=== PATIENT | female | born 1990 | race Caucasian/White ===

== ENCOUNTER 2025-05-26 07:46 | Emergency (ER) | payer OTHER, SELFPAY ==
[2025-05-26 07:54] VITALS: PULSE 85; O2SAT 97
[2025-05-26 07:58] VITALS: BP 127/83; PULSE 83; O2SAT 98
[2025-05-26 08:00] VITALS: BP 127/83; PULSE 83; PULSE 85; RESP 16; TEMP 36.5; O2SAT 97; O2SAT 99; BMI 21.4
--- NOTE | 2025-05-26 08:28 | ED_ITS ---
HPI - Extremity Injury (Lower) General Chief Complaint: Extremity Injury, Lower Stated Complaint: Left knee pain x 11 Days Time Seen by Provider: 05/26/25 08:04 Source: patient Mode of arrival: Ambulatory History of Present Illness HPI Narrative: 34-year-old female who approximately 11 days ago was playing soccer and had an injury from an opponent with his knee on the lateral side of her knee. Initially was swollen and difficulty even ambulate and flex. Her swelling has since diminished and she has much more flexion now but the pain is persisting and she is worried that there may be tendon or muscle damage. Related Data Previous Rx's ?Medication ?Instructions ?Recorded cyclobenzaprine 10 mg tablet 10 mg PO TID PRN muscle s pasm #20 05/26/25 tabs Allergies Allergy/AdvReac Type Severity Reaction Status Date / Time Penicillins Allergy Verified 05/26/25 08:03 Sulfa (Sulfonamide Allergy Verified 05/26/25 08:03 Antibiotics) Review of Systems Review of Systems ROS Unobtainable: All systems reviewed & are unremarkable except as noted in HPI and below Patient History Smoking Status: Never smoker Exam Narrative Exam Narrative: General: Patient appears to be in no acute distress, acting appropriately Head: normocephalic, atraumatic, HEENT: Pupils equal round reactive, eyes tracking well, neck supple, no JVD Heart: regular rate and rhythm, no murmurs, rubs, or gallops heard Lungs: clear to auscultation, no adventitious sounds Abdomen: soft , nontender, nondistended, positive bowel sounds Neurological: no focal neurological signs, moving all extremities well, alert and oriented x3, Psych: good judgment ,good insight, mood is normal. ext: left knee minor swelling, aundrea, amos tests negative, feeling pain around lateral tendon area of leg Initial Vital Signs Initial Vital Signs: Vital Signs Pulse Rate 85 05/26/25 07:54 Pulse Oximetry 97 05/26/25 07:54 Course Course Course Narrative: Reassured patient that an MRI is most likely unnecessary but patient is still wanting to get one. We ended up cancelling the MRI due to insurance issues. Orders Ordered: ED Orders 05/26/25 08:13 MR knee LT wo con Stat Vital Signs Vital signs: Vital Signs - 8 hr 05/26/25 07:54 05/26/25 07:58 05/26/25 07:58 Temperature Pulse Rate 85 83 Respiratory Rate Blood Pressure 127/83 Pulse Oximetry 97 98 Oxygen Delivery Method 05/26/25 08:00 05/26/25 08:00 Temperature 97.7 F Pulse Rate 85 83 Respiratory Rate 16 Blood Pressure 127/83 Pulse Oximetry 97 99 Oxygen Delivery Method Room Air MDM - Extremity Injury (Lower) Differential Diagnosis Differential diagnosis: Likely acute internal derangement of knee and other (knee tendon damage/muscle tear ) MDM Narrative Medical decision making narrative: Less likely a meniscal tear or ligament tear. Advised the patient that surgery is most likely not necessary. Continue to manage with conservative treatment. Rest ice elevate compress and use NSAIDs and muscle relaxants as needed. Can follow up as an outpatient for further imaging if pain persists. Discharge Plan Departure Patient Disposition: Home Clinical Impression: Left knee tendonitis Instructions: DI for Knee Pain Activity Restrictions/Additional Instructions: Advised to continue with rest ice and elevation. Continue to use Motrin or Tylenol as needed. Can get an MRI as an outpatient if pain persists. We will prescribe some muscle relaxants to be used as needed. Prescriptions: New cyclobenzaprine 10 mg tablet 10 mg PO TID PRN (Reason: muscle spasm) Qty: 20 0RF Stand Alone Forms: Patient Portal/API
[2025-05-26 09:00] VITALS: RESP 18
== END 2025-05-26 09:02 | disposition home or self-care (01) ==
PROVIDERS: Emergency Provider Family Medicine
DX: M76.9 Unspecified enthesopathy, lower limb, excluding foot (principal)
CPT/HCPCS: 99281